=== PATIENT | male | born 1955 | race Caucasian/White ===

== ENCOUNTER 2019-02-08 10:16 | Day surgery (SDC) | payer OTHER ==
[2012-08-07 00:08] VITALS: BP 142/102
[2019-02-08] MEDS ORDERED: DIPRIVAN 200 MG/20 ML IV ONE (10:17)
[2019-02-08] MEDS ORDERED: Xylocaine-Mpf 2% 5 Ml Vial IJ ONE (10:17)
[2019-02-08] MEDS ORDERED: Ketamine HCl 50 MG/ML IJ ONE (10:17)
[2019-02-08] MEDS ORDERED: Depo-Medrol 40 MG/ML IM ONE (10:17)
[2019-02-08] MEDS ORDERED: LIDOCAINE HCL 2% 100 MG/5 ML IJ ONE (10:17)
[2019-02-08] MEDS ORDERED: LOPRESSOR 5 MG/5 ML INJECTION IV ONE (10:17)
[2019-02-08] MEDS ORDERED: Lactated Ringers 1,000 ML IV ONE (14:24)
--- NOTE | 2019-02-08 16:12 | XRAY ---
Indication: Bilateral L4-S1 MBB. Intraoperative fluoroscopy was provided for 8 seconds. Single digital spot image submitted for interpretation demonstrates posterior needle tips in the expected region of the left and right L4-S1 nerve roots. Correlate with intraoperative findings/report.
--- NOTE | 2019-02-08 16:15 | XRAY ---
8 seconds of fluoroscopy was used in surgery for bilateral L4-L5 and L5-S1 MBB.
== END 2019-02-08 12:35 | disposition home or self-care (01) ==
LOC: SDC-PAIN 10:16
PROVIDERS: ATTEND Psychiatry & Neurology Pain Medicine
DX: M54.5 Low back pain (principal); M47.816 Spondylosis without myelopathy or radiculopathy, lumbar region; I10 Essential (primary) hypertension; E78.5 Hyperlipidemia, unspecified; M19.90 Unspecified osteoarthritis, unspecified site; Z79.899 Other long term (current) drug therapy
CPT/HCPCS: 64493; 64494; 72020; 77002; J1030; J2704

== ENCOUNTER 2024-05-11 13:05 | Inpatient (IN) | payer OTHER ==
[2024-05-11] MEDS ORDERED: DUONEB 0.5-3 MG/3 ml Neb IH PRN (15:07)
--- NOTE | 2024-05-11 15:32 | PCM.HP ---
History of Present Illness - Chief Complaint Chief Complaint: Renal Cancer Date: 05/11/24 History of Present Illness: is a 68 year old male with PMHX HTN, bronchitis, bipolar, of renal cancer with mets. He is a hospice pt with [facility] and pain was not being controlled at home with oral meds. He was a direct admit today for pain control. Pt reports all over pain and moaning. Will start with IV meds as he is very SOB and unable to tolerate PO meds at this time. Hospice provided written orders and approved by Dr. Hudson to continue. Pt is a DNR. There is no family with pt at this time. - Review of Systems Constitutional: Weakness, No Fever, No Chills Eyes: No Symptoms Ears, Nose, & Throat: No Symptoms Respiratory: Cough, Short Of Breath Cardiac: No Chest Pain, No Edema, No Syncope Abdominal/Gastrointestinal: No Abdominal Pain, No Nausea, No Vomiting, No Diarrhea Genitourinary Symptoms: Incontinence, Urinary Retention, No Dysuria Musculoskeletal: No Back Pain, No Neck Pain Skin: No Rash Neurological: No Dizziness, No Focal Weakness, No Sensory Changes Psychological: No Symptoms Endocrine: No Symptoms Hematologic/Lymphatic: No Symptoms Immunological/Allergic: No Symptoms Medications & Allergies Home Medications: Home Medication List No Reportable Medications [No Reported Medications] 05/11/24 [History Confirmed 05/11/24] Allergies/Adverse Reactions: Allergies Allergy/AdvReac Type Severity Reaction Status Date / Time Penicillins Allergy Mild Unverified 05/11/24 15:22 Sulfa (Sulfonamide Allergy Mild Unverified 05/11/24 15:22 Antibiotics) [Sulfa(Sulfonamide Antibiotics)] - Past Medical History Past Medical History: Yes Neurological History: No Pertinent History ENT History: No Pertinent History Cardiac History: Hypertension Respiratory History: No Pertinent History, Bronchitis Endocrine Medical History: No Pertinent History Musculoskelatal History: Other GI Medical History: Hernia History: No Pertinent History Pyscho-Social History: No Pertinent History, Bipolar Male Reproductive Disorders: No Pertinent History Comment: HX RECALLED FROM PREVIOUS VISIT - Past Surgical History Past Surgical History: Yes Neuro Surgical History: No Pertinent History Cardiac History: No Pertinent History Respiratory Surgery: No Pertinent History GI Surgical History: No Pertinent History Genitourinary Surgical Hx: No Pertinent History Musculskeletal Surgical Hx: No Pertinent History Male Surgical History: No Pertinent History Other Surgical History: HX RECALLED FROM PREVIOUS VISIT - Social History Smoking Status: Unknown if ever smoked How long have you smoked: 30 YRS Exposure to second hand smoke: No Alcohol: Daily Drug Use: none - Social Determinants of Health Will the patient participate in the screening: Unable to obtain - Physical Exam Vital Signs: Vital Signs - 24 hr Temp Pulse Resp BP Pulse Ox 05/11/24 14:51 98.4 F 69 14 178/78 90 L General Appearance: moderate distress, alert Neurologic Exam: alert, cooperative, motor weakness, slurred speech, No motor deficits Eye Exam: PERRL/EOMI, eyes nml inspection Ears, Nose, Throat Exam: normal ENT inspection, TMs normal, pharynx normal, moist mucous membranes Neck Exam: normal inspection, non-tender, supple, full range of motion Respiratory Exam: diminished breath sounds, crackles/rales, No respiratory distress Cardiovascular Exam: regular rate/rhythm, normal heart sounds, normal peripheral pulses Gastrointestinal/Abdomen Exam: soft, normal bowel sounds, No tenderness, No mass Back Exam: normal inspection, normal range of motion, No CVA tenderness, No vertebral tenderness Extremity Exam: normal inspection, normal range of motion, pelvis stable Skin Exam: normal color, warm, dry, No rash Lymphatic Exam: No adenopathy Assessment/Plan (1) Hospice care patient Current Visit: Yes Status: Acute Assessment & Plan: - admitted from home for uncontrolled pain with [facility] - Orders wrote out by [facility] approved and continued. - Pain, anxiety meds IV PRN - Oropeza for incontinence Hospice care Code(s): Z51.5 - ENCOUNTER FOR PALLIATIVE CARE (2) Kidney cancer, primary, with metastasis from kidney to other site Current Visit: Yes Status: Chronic Assessment & Plan: - Hospice care Code(s): C64.9 - MALIGNANT NEOPLASM OF UNSP KIDNEY, EXCEPT RENAL PELVIS (3) Uncontrolled pain Current Visit: Yes Status: Acute Assessment & Plan: - oral meds changed to IV for continued comfort. Code(s): R52 - PAIN, UNSPECIFIED (4) Oxygen dependent Current Visit: Yes Status: Acute Assessment & Plan: - 5lNC 90% Code(s): Z99.81 - DEPENDENCE ON SUPPLEMENTAL OXYGEN
[2024-05-11] MEDS ORDERED: FEVERALL 650 MG RC PRN (15:33)
[2024-05-11] MEDS ORDERED: Dulcolax 10 MG SUPP PR PRN (15:34)
[2024-05-11] MEDS: MORPHINE SULFATE 2 MG INJ IV PRN (16:13)
[2024-05-11] MEDS: Ativan 2 MG/1 ML VIAL IV PRN (16:27)
[2024-05-12] MEDS: ANASPAZ 0.125 MG PO PRN (09:04)
[2024-05-12] MEDS: MORPHINE SULFATE 2 MG INJ IV PRN (10:04)
[2024-05-12] MEDS: Ativan 2 MG/1 ML VIAL IV PRN (10:22)
--- NOTE | 2024-05-12 12:26 | PCM.NOTE ---
Date and Time: 05/12/24 1219 Subjective Assessment: 05/11/24 is a 68 year old male with PMHX HTN, bronchitis, bipolar, of renal cancer with mets. He is a hospice pt with [facility] and pain was not being controlled at home with oral meds. He was a direct admit today for pain control. Pt reports all over pain and moaning. Will start with IV meds as he is very SOB and unable to tolerate PO meds at this time. Hospice provided written orders and approved by Dr. Hudson to continue. Pt is a DNR. There is no family with pt at this time. 05/12/24 Pt resting in bed. He has continued pain and increased secretions. This is being managed by Hospice. IOPO called by warehouse assistant. No family today with pt. Continue IV meds PRN. No further concerns at this time. - Review of Systems Constitutional: Fatigue (generalized pain), Weakness, No Fever, No Chills Eyes: No Symptoms Ears, Nose, & Throat: No Symptoms Respiratory: Short Of Breath, No Cough Cardiac: No Chest Pain, No Edema, No Syncope Abdominal/Gastrointestinal: No Abdominal Pain, No Nausea, No Vomiting, No Diarrhea Genitourinary Symptoms: No Dysuria Musculoskeletal: No Back Pain, No Neck Pain Skin: No Rash Neurological: No Dizziness, No Focal Weakness, No Sensory Changes Psychological: No Symptoms Endocrine: No Symptoms Hematologic/Lymphatic: No Symptoms Immunological/Allergic: No Symptoms Objective Exam General Appearance: mild distress, alert, thin Neurologic Exam: alert, cooperative, slurred speech, No motor deficits Skin Exam: normal color, warm, dry Eye Exam: PERRL, EOMI, eyes nml inspection Ears, Nose, Throat Exam: normal ENT inspection, pharynx normal, moist mucous membranes Neck Exam: normal inspection, non-tender, supple, full range of motion Respiratory Exam: diminished breath sounds, rhonchi, No respiratory distress Cardiovascular Exam: regular rate/rhythm, normal heart sounds Gastrointestinal/Abdomen Exam: soft, No tenderness, No mass Extremity Exam: normal inspection Back Exam: normal inspection, normal range of motion, No CVA tenderness, No vertebral tenderness Male Genitalia Exam: deferred Rectal Exam: deferred Objective Data Vital Signs: Vital Signs - 24 hr Temp Pulse Resp BP Pulse Ox 05/12/24 09:03 66 28 H 05/12/24 08:11 66 16 91 L 05/12/24 07:36 99.0 F 77 21 137/65 90 L 05/12/24 04:00 97.7 F 70 20 109/59 92 L 05/12/24 00:09 72 23 05/12/24 00:00 98.2 F 23 165/79 92 L 05/11/24 20:55 76 22 05/11/24 20:00 97.7 F 82 28 H 187/97 91 L 05/11/24 19:15 75 24 92 L 05/11/24 18:57 92 L 05/11/24 17:35 88 L 05/11/24 14:51 98.4 F 69 14 178/78 90 L Pain Assessment - Last Documented Pain Intensity 5 Pain Scale Used 0-10 Pain Scale Intake and Output: Intake & Output 05/10/24 05/11/24 05/12/24 05/13/24 11:59 11:59 11:59 11:59 Intake Total 0 Output Total 1550 Balance -1550 Weight 67.6 kg Multi-Disciplinary Progress Notes: Multi-Disciplinary Progress Notes 05/12/24 09:12 Case Management Note by Zofia Solis PATIENT HERE UNDER [facility] CARE WITH [facility]. Mika JARA ( [facility]) REPORTED THEIR AUDIENCE DEVELOPMENT MANAGER IS FOLLOWING PATIENT Initialized on 05/12/24 09:12 - END OF NOTE Assessment/Plan (1) Hospice care patient Current Visit: Yes Status: Acute Code(s): Z51.5 - ENCOUNTER FOR PALLIATIVE CARE (2) Kidney cancer, primary, with metastasis from kidney to other site Current Visit: Yes Status: Chronic Code(s): C64.9 - MALIGNANT NEOPLASM OF UNSP KIDNEY, EXCEPT RENAL PELVIS (3) Uncontrolled pain Current Visit: Yes Status: Acute Code(s): R52 - PAIN, UNSPECIFIED (4) Oxygen dependent Current Visit: Yes Status: Acute Assessment & Plan: 1) Hospice care patient Current Visit: Yes Status: Acute Assessment & Plan: - admitted from home for uncontrolled pain with [facility] - Orders wrote out by [facility] approved and continued. - Pain, anxiety meds IV PRN - Oropeza for incontinence Hospice care 05/12 - continued pain, anxiety, increased secretions- managed by hospice. - IOPO called by warehouse assistant Code(s): Z51.5 - ENCOUNTER FOR PALLIATIVE CARE (2) Kidney cancer, primary, with metastasis from kidney to other site Current Visit: Yes Status: Chronic Assessment & Plan: - Hospice care Code(s): C64.9 - MALIGNANT NEOPLASM OF UNSP KIDNEY, EXCEPT RENAL PELVIS (3) Uncontrolled pain Current Visit: Yes Status: Acute Assessment & Plan: - oral meds changed to IV for continued comfort. Code(s): R52 - PAIN, UNSPECIFIED (4) Oxygen dependent Current Visit: Yes Status: Acute Assessment & Plan: - 5lNC 90% Code(s): Z99.81 - DEPENDENCE ON SUPPLEMENTAL OXYGEN Code(s): Z99.81 - DEPENDENCE ON SUPPLEMENTAL OXYGEN
--- NOTE | 2024-05-13 11:43 | PCM.NOTE ---
Date and Time: 05/13/24 1136 Subjective Assessment: 05/11/24 is a 68 year old male with PMHX HTN, bronchitis, bipolar, of renal cancer with mets. He is a hospice pt with [facility] and pain was not being controlled at home with oral meds. He was a direct admit today for pain control. Pt reports all over pain and moaning. Will start with IV meds as he is very SOB and unable to tolerate PO meds at this time. Hospice provided written orders and approved by Dr. Hudson to continue. Pt is a DNR. There is no family with pt at this time. 05/12/24 Pt resting in bed. He has continued pain and increased secretions. This is being managed by Hospice. IOPO called by greenhouse manager. No family today with pt. Continue IV meds PRN. No further concerns at this time. 05/13/24 Pt resting in bed. When asking pt about pain he asked that we all just leave him alone. Continued pain and anxiety IV medications being provided for end of life care. Hospice in room today. Will continue same plan of care. No new concerns. - Review of Systems Constitutional: Fatigue, Weakness, No Fever, No Chills Eyes: No Symptoms Ears, Nose, & Throat: No Symptoms Respiratory: Short Of Breath, No Cough Cardiac: No Chest Pain, No Edema, No Syncope Abdominal/Gastrointestinal: No Abdominal Pain, No Nausea, No Vomiting, No Diarrhea Genitourinary Symptoms: No Dysuria Musculoskeletal: No Back Pain, No Neck Pain Skin: No Rash Neurological: No Dizziness, No Focal Weakness, No Sensory Changes Psychological: No Symptoms, Other (irritable) Endocrine: No Symptoms Hematologic/Lymphatic: No Symptoms Immunological/Allergic: No Symptoms Objective Exam General Appearance: no apparent distress, alert, cachetic Neurologic Exam: alert, agitation, No motor deficits Skin Exam: normal color, warm, dry Eye Exam: PERRL, EOMI, eyes nml inspection Ears, Nose, Throat Exam: normal ENT inspection, pharynx normal, moist mucous membranes Neck Exam: normal inspection, non-tender, supple, full range of motion Respiratory Exam: normal breath sounds, lungs clear, No respiratory distress Cardiovascular Exam: regular rate/rhythm, normal heart sounds Gastrointestinal/Abdomen Exam: soft, No tenderness, No mass Extremity Exam: normal inspection, normal range of motion Back Exam: normal inspection, normal range of motion, No CVA tenderness, No vertebral tenderness Male Genitalia Exam: deferred Rectal Exam: deferred Objective Data Vital Signs: Vital Signs - 24 hr Temp Pulse Resp BP Pulse Ox 05/13/24 11:22 96.6 F 70 25 H 117/51 99 05/13/24 10:39 96 05/13/24 09:40 99 05/13/24 09:32 70 20 05/13/24 07:30 98 05/13/24 06:53 96.5 F 73 30 H 96/56 99 05/13/24 04:00 96.9 F 16 99 05/13/24 00:00 99.6 F 69 19 119/59 101 H 05/12/24 20:00 99.1 F 89 19 119/59 99 05/12/24 19:00 71 20 05/12/24 18:50 74 26 H 99 05/12/24 16:00 98.0 F 71 20 115/54 89 L 05/12/24 14:27 121 H 20 05/12/24 12:00 97.7 F 75 24 125/60 81 L Pain Assessment - Last Documented Pain Intensity 5 Pain Scale Used FLACC Intake and Output: Intake & Output 05/10/24 05/11/24 05/12/24 05/13/24 11:59 11:59 11:59 11:59 Intake Total 0 0 Output Total 1550 825 Balance -1550 -825 Weight 67.6 kg 67.6 kg Assessment/Plan (1) Hospice care patient Current Visit: Yes Status: Acute Code(s): Z51.5 - ENCOUNTER FOR PALLIATIVE CARE (2) Kidney cancer, primary, with metastasis from kidney to other site Current Visit: Yes Status: Chronic Code(s): C64.9 - MALIGNANT NEOPLASM OF UNSP KIDNEY, EXCEPT RENAL PELVIS (3) Uncontrolled pain Current Visit: Yes Status: Acute Code(s): R52 - PAIN, UNSPECIFIED (4) Oxygen dependent Current Visit: Yes Status: Acute Assessment & Plan: 1) Hospice care patient Current Visit: Yes Status: Acute Assessment & Plan: - admitted from home for uncontrolled pain with [facility] - Orders wrote out by [facility] approved and continued. - Pain, anxiety meds IV PRN - Oropeza for incontinence Hospice care 05/12 - continued pain, anxiety, increased secretions- managed by hospice. - [facility] called by greenhouse manager 05/13 - Pt resting in bed, asked to be left alone - Continued hospice care - IV pain and anxiety meds Code(s): Z51.5 - ENCOUNTER FOR PALLIATIVE CARE (2) Kidney cancer, primary, with metastasis from kidney to other site Current Visit: Yes Status: Chronic Assessment & Plan: - Hospice care Code(s): C64.9 - MALIGNANT NEOPLASM OF UNSP KIDNEY, EXCEPT RENAL PELVIS (3) Uncontrolled pain Current Visit: Yes Status: Acute Assessment & Plan: - oral meds changed to IV for continued comfort. Code(s): R52 - PAIN, UNSPECIFIED (4) Oxygen dependent Current Visit: Yes Status: Acute Assessment & Plan: - 5lNC 90% 05/13 - 5L 98% Code(s): Z99.81 - DEPENDENCE ON SUPPLEMENTAL OXYGEN
--- NOTE | 2024-05-14 11:26 | PCM.NOTE ---
Date and Time: 05/14/24 1120 Subjective Assessment: 05/11/24 is a 68 year old male with PMHX HTN, bronchitis, bipolar, of renal cancer with mets. He is a hospice pt with [facility] and pain was not being controlled at home with oral meds. He was a direct admit today for pain control. Pt reports all over pain and moaning. Will start with IV meds as he is very SOB and unable to tolerate PO meds at this time. Hospice provided written orders and approved by Dr. Hudson to continue. Pt is a DNR. There is no family with pt at this time. 05/12/24 Pt resting in bed. He has continued pain and increased secretions. This is being managed by Hospice. IOPO called by warehouse assembly worker. No family today with pt. Continue IV meds PRN. No further concerns at this time. 05/13/24 Pt resting in bed. When asking pt about pain he asked that we all just leave him alone. Continued pain and anxiety IV medications being provided for end of life care. Hospice in room today. Will continue same plan of care. No new concerns. 05/14/24 Pt resting in bed. He is having little urine output. He was not given ativan last night and was restless this am until meds gave. Pain appears well controlled with meds. He is not responding to questions today. Family not in room with pt. He is on 2lNC at 91%. Will continue same plan of care. - Review of Systems Constitutional: No Fever, No Chills Eyes: No Symptoms Ears, Nose, & Throat: No Symptoms Respiratory: No Cough, No Short Of Breath Cardiac: No Chest Pain, No Edema, No Syncope Abdominal/Gastrointestinal: No Abdominal Pain, No Nausea, No Vomiting, No Diarrhea Genitourinary Symptoms: No Dysuria Musculoskeletal: No Back Pain, No Neck Pain Skin: No Rash Neurological: No Dizziness, No Focal Weakness, No Sensory Changes Psychological: No Symptoms Endocrine: No Symptoms Hematologic/Lymphatic: No Symptoms Immunological/Allergic: No Symptoms Additional Findings: pt not awake or alert- unable to respond to questions Objective Exam General Appearance: no apparent distress Skin Exam: mottled (legs) Ears, Nose, Throat Exam: dry mucous membranes Neck Exam: normal inspection Respiratory Exam: rhonchi Cardiovascular Exam: regular rate/rhythm Gastrointestinal/Abdomen Exam: soft Extremity Exam: normal inspection Male Genitalia Exam: deferred Rectal Exam: deferred Objective Data Vital Signs: Vital Signs - 24 hr Temp Pulse Resp BP BP Pulse Ox 05/14/24 08:30 74 20 05/14/24 07:39 98.0 F 71 14 110/54 91 L 05/14/24 06:39 97 05/14/24 04:00 97.0 F 79 15 118/55 05/13/24 23:55 97.8 F 98 H 16 99 05/13/24 20:20 73 16 98 05/13/24 20:00 97.2 F 76 17 112/57 99 05/13/24 18:38 76 18 112/57 05/13/24 16:12 74 104/59 05/13/24 16:00 96.5 F 72 24 104/52 99 05/13/24 11:22 96.6 F 70 25 H 117/51 99 Pain Assessment - Last Documented Pain Intensity 5 Pain Scale Used FLACC Intake and Output: Intake & Output 05/11/24 05/12/24 05/13/24 05/14/24 11:59 11:59 11:59 11:59 Intake Total 0 0 0 Output Total 1550 825 375 Balance -1550 -825 -375 Weight 67.6 kg 67.6 kg Assessment/Plan (1) Hospice care patient Current Visit: Yes Status: Acute Code(s): Z51.5 - ENCOUNTER FOR PALLIATIVE CARE (2) Kidney cancer, primary, with metastasis from kidney to other site Current Visit: Yes Status: Chronic Code(s): C64.9 - MALIGNANT NEOPLASM OF UNSP KIDNEY, EXCEPT RENAL PELVIS (3) Uncontrolled pain Current Visit: Yes Status: Acute Code(s): R52 - PAIN, UNSPECIFIED (4) Oxygen dependent Current Visit: Yes Status: Acute Assessment & Plan: 1) Hospice care patient Current Visit: Yes Status: Acute Assessment & Plan: - admitted from home for uncontrolled pain with [facility] - Orders wrote out by [facility] approved and continued. - Pain, anxiety meds IV PRN - Oropeza for incontinence Hospice care 05/12 - continued pain, anxiety, increased secretions- managed by hospice. - IOP[facility] called by warehouse assembly worker 05/13 - Pt resting in bed, asked to be left alone - Continued hospice care - IV pain and anxiety meds 05/14 - no Ativan gave last night and pt restless this am- advised to encouraged rn night nurses to provide meds for comfort as needed. Code(s): Z51.5 - ENCOUNTER FOR PALLIATIVE CARE (2) Kidney cancer, primary, with metastasis from kidney to other site Current Visit: Yes Status: Chronic Assessment & Plan: - Hospice care Code(s): C64.9 - MALIGNANT NEOPLASM OF UNSP KIDNEY, EXCEPT RENAL PELVIS (3) Uncontrolled pain Current Visit: Yes Status: Acute Assessment & Plan: - oral meds changed to IV for continued comfort. - pain controlled with meds Code(s): R52 - PAIN, UNSPECIFIED (4) Oxygen dependent Current Visit: Yes Status: Acute Assessment & Plan: - 5lNC 90% 05/13 - 5L 98% 05/14 - 91% 2lNC Code(s): Z99.81 - DEPENDENCE ON SUPPLEMENTAL OXYGEN Code(s): Z99.81 - DEPENDENCE ON SUPPLEMENTAL OXYGEN
--- NOTE | 2024-05-15 05:55 | PCM.NOTE ---
Date and Time: 05/15/24 0553 Subjective Assessment: is a 68 year old male with PMHX HTN, bronchitis, bipolar, of renal cancer with mets. He is a hospice pt with [facility] and pain was not being controlled at home with oral meds. He was a direct admit today for pain control. Pt reports all over pain and moaning. Will start with IV meds as he is very SOB and unable to tolerate PO meds at this time. Hospice provided written orders and approved by Dr. Hudson to continue. Pt is a DNR. 05/15/24: Patient resting comfortably. Family at bedside. All questions and concerns answered. Per family, patient appears to be comfortable. Plan to continue pain control. <DONELL BAZAN - Last Filed: 05/15/24 14:53> Date and Time: 05/15/242226 <LOU SANDERS - Last Filed: 05/15/24 22:29> - Review of Systems All Other Systems: Unable due to condition <DONELL BAZAN - Last Filed: 05/15/24 14:53> Objective Exam General Appearance: no apparent distress Skin Exam: pale Respiratory Exam: crackles/rales Cardiovascular Exam: regular rate/rhythm, normal heart sounds Gastrointestinal/Abdomen Exam: soft, normal bowel sounds Extremity Exam: normal inspection <DONELL BAZAN - Last Filed: 05/15/24 14:53> Objective Data Vital Signs: Vital Signs - 24 hr Temp Pulse Resp BP BP Pulse Ox 05/15/24 03:52 97.8 F 80 25 H 130/60 85 L 05/14/24 23:55 97.9 F 83 16 101/51 99 05/14/24 19:59 97.4 F 88 15 109/55 89 L 05/14/24 19:13 94 L 05/14/24 17:32 63 14 05/14/24 16:00 97.4 F 68 13 103/51 05/14/24 13:58 74 124/68 05/14/24 11:51 68 124/68 05/14/24 11:41 97.4 F 77 12 124/56 05/14/24 08:30 74 20 05/14/24 07:39 98.0 F 71 14 110/54 91 L 05/14/24 06:39 97 Pain Assessment - Last Documented Pain Intensity 5 Pain Scale Used FLACC Intake and Output: Intake & Output 05/12/24 05/13/24 05/14/24 05/15/24 11:59 11:59 11:59 11:59 Intake Total 0 0 0 0 Output Total 5940 825 375 450 Balance -1550 -825 -375 -450 Weight 67.6 kg 67.6 kg <DONELL BAZAN - Last Filed: 05/15/24 14:53> Vital Signs: Vital Signs - 24 hr Temp Pulse Resp BP BP Pulse Ox 05/15/24 19:49 98.0 F 85 16 95/51 87 L 05/15/24 18:43 96 05/15/24 18:26 79 05/15/24 16:00 98.1 F 92 H 17 110/57 110/57 99 05/15/24 12:00 97.6 F 71 14 84/48 99 05/15/24 11:26 70 18 05/15/24 07:09 99 05/15/24 07:03 97.2 F 77 14 105/51 99 05/15/24 03:52 97.8 F 80 25 H 130/60 85 L 05/14/24 23:55 97.9 F 83 16 101/51 99 Pain Assessment - Last Documented Pain Intensity 4 Pain Scale Used FLACC Intake and Output: Intake & Output 05/13/24 05/14/24 05/15/24 05/16/24 11:59 11:59 11:59 11:59 Intake Total 0 0 0 0 Output Total 825 375 450 250 Balance -825 -375 -450 -250 Weight 67.6 kg <LOU SANDERS - Last Filed: 05/15/24 22:29> Assessment/Plan (1) Hospice care patient Current Visit: Yes Status: Acute Assessment & Plan: - Under the care of [facility]/ admitted for pain control - Agree with orders provided by [facility]-will continue - Pain, anxiety meds IV PRN - Oropeza for incontinence Hospice care Code(s): Z51.5 - ENCOUNTER FOR PALLIATIVE CARE (2) Oxygen dependent Current Visit: Yes Status: Acute Assessment & Plan: -Noted, will continue comfort measures including oxygen support Code(s): Z99.81 - DEPENDENCE ON SUPPLEMENTAL OXYGEN (3) Uncontrolled pain Current Visit: Yes Status: Acute Assessment & Plan: - pain controlled with IV pain meds -continue to monitor and adjust as needed Code(s): R52 - PAIN, UNSPECIFIED (4) Kidney cancer, primary, with metastasis from kidney to other site Current Visit: Yes Status: Chronic Assessment & Plan: - Hospice care -Will continue comfort measures as outlined by [facility] Code(s): C64.9 - MALIGNANT NEOPLASM OF UNSP KIDNEY, EXCEPT RENAL PELVIS <DONELL BAZAN - Last Filed: 05/15/24 14:53> DONOVAN Encounter - DONOVAN Encounter Attestation DONOVAN Encounter Attestation: "IhavepersonalDASHA Collins andhavediscussed pertinent aspects of their care with Donell Rudd agree with the history, physical exam (any modifications based on my personal exam will be noted below), assessment, and plan as outlined in original note. Please see immediately below for my summary of findings and additional assessment and plan along with any meaningful corrections/explanations to the Subjective/Objective portions of the DONOVAN note will be noted." My portion of the encounter took place via telemedicine. -[facility] on comfort measures only. Spoke with family at the bedside. Patient did not appear to be struggling or in pain/distress <LOU SANDESR - Last Filed: 05/15/24 22:29>
[2024-05-15] MEDS ORDERED: MORPHINE SULFATE 2 MG INJ IV PRN (10:04)
[2024-05-15] MEDS: Ativan 2 MG/1 ML VIAL IV PRN (11:26)
[2024-05-15] MEDS: MORPHINE SULFATE 4 MG INJ IV PRN (11:28)
--- NOTE | 2024-05-16 05:31 | PCM.NOTE ---
Date and Time: 05/16/24529 Subjective Assessment: is a 68 year old male with PMHX HTN, bronchitis, bipolar, of renal cancer with mets. He is a hospice pt with [facility] and pain was not being controlled at home with oral meds. He was a direct admit today for pain control. Pt reports all over pain and moaning. Will start with IV meds as he is very SOB and unable to tolerate PO meds at this time. Hospice provided written orders and approved by Dr. Hudson to continue. Pt is a DNR. 05/15/24: Patient resting comfortably. Family at bedside. All questions and concerns answered. Per family, patient appears to be comfortable. Plan to continue pain control. 05/16/24: No overnight events noted. Patient continues to rest comfortably. No concerns per family. Continue current management. - Review of Systems All Other Systems: Unable due to condition Objective Exam General Appearance: no apparent distress Neurologic Exam: other (sedation) Skin Exam: pale Respiratory Exam: crackles/rales Cardiovascular Exam: regular rate/rhythm, normal heart sounds Gastrointestinal/Abdomen Exam: soft, normal bowel sounds Extremity Exam: normal inspection Back Exam: normal inspection Male Genitalia Exam: deferred Rectal Exam: deferred Objective Data Vital Signs: Vital Signs - 24 hr Temp Pulse Resp BP BP Pulse Ox 05/16/24 04:00 97.5 F 85 95/50 89 L 05/15/24 22:56 97.8 F 91 H 16 121/60 89 L 05/15/24 22:48 91 H 121/60 05/15/24 19:49 98.0 F 85 16 95/51 87 L 05/15/24 18:43 96 05/15/24 18:26 79 05/15/24 16:00 98.1 F 92 H 17 110/57 110/57 99 05/15/24 12:00 97.6 F 71 14 84/48 99 05/15/24 11:26 70 18 05/15/24 07:09 99 05/15/24 07:03 97.2 F 77 14 105/51 99 Pain Assessment - Last Documented Pain Intensity 2 Pain Scale [facility] Intake and Output: Intake & Output 05/13/24 05/14/24 05/15/24 05/16/24 11:59 11:59 11:59 11:59 Intake Total 0 0 0 0 Output Total 824 597 879 004 Balance -085 -375 -450 -833 Weight 67.6 kg Assessment/Plan (1) Hospice care patient Current Visit: Yes Status: Acute Assessment & Plan: - Under the care of [facility] Hospice/ admitted for pain control - Agree with orders provided by [facility]-will continue - Pain, anxiety meds IV PRN - Oropeza for incontinence Hospice care 05/16: -Pt appears comfortable - continue current pain management as outlined by [facility] Code(s): Z51.5 - ENCOUNTER FOR PALLIATIVE CARE (2) Oxygen dependent Current Visit: Yes Status: Acute Assessment & Plan: -Noted, will continue comfort measures including oxygen support 05/16: -oxygen desating to mid 80's, will continue oxygen support for comfort Code(s): Z99.81 - DEPENDENCE ON SUPPLEMENTAL OXYGEN (3) Uncontrolled pain Current Visit: Yes Status: Acute Assessment & Plan: - pain controlled with IV pain meds -continue to monitor and adjust as needed Code(s): R52 - PAIN, UNSPECIFIED (4) Kidney cancer, primary, with metastasis from kidney to other site Current Visit: Yes Status: Chronic Assessment & Plan: - Hospice care -Will continue comfort measures as outlined by [facility] Code(s): Z51.5 - ENCOUNTER FOR PALLIATIVE CARE (2) Oxygen dependent Current Visit: Yes Status: Acute Code(s): Z99.81 - DEPENDENCE ON SUPPLEMENTAL OXYGEN (3) Uncontrolled pain Current Visit: Yes Status: Acute Code(s): R52 - PAIN, UNSPECIFIED (4) Kidney cancer, primary, with metastasis from kidney to other site Current Visit: Yes Status: Chronic Code(s): C64.9 - MALIGNANT NEOPLASM OF UNSP KIDNEY, EXCEPT RENAL PELVIS
--- NOTE | 2024-05-17 05:48 | PCM.NOTE ---
Date and Time: 05/17/2456 Subjective Assessment: is a 68 year old male with PMHX HTN, bronchitis, bipolar, of renal cancer with mets. He is a hospice pt with [facility] and pain was not being controlled at home with oral meds. He was a direct admit today for pain control. Pt reports all over pain and moaning. Will start with IV meds as he is very SOB and unable to tolerate PO meds at this time. Hospice provided written orders and approved by Dr. Hudson to continue. Pt is a DNR. 05/15/24: Patient resting comfortably. Family at bedside. All questions and concerns answered. Per family, patient appears to be comfortable. Plan to continue pain control. 05/16/24: No overnight events noted. Patient continues to rest comfortably. No concerns per family. Continue current management. 05/17/24: Patient resting comfortably. Is responsive when being moved. Per RN, Hospice to try to wean off IV meds and start oral pain meds and possible discharge home. - Review of Systems All Other Systems: Unable due to condition Objective Exam General Appearance: no apparent distress, lethargy Skin Exam: pale Respiratory Exam: prolonged expirations, crackles/rales Cardiovascular Exam: regular rate/rhythm, normal heart sounds, murmur Gastrointestinal/Abdomen Exam: soft, normal bowel sounds Back Exam: normal inspection Male Genitalia Exam: deferred Rectal Exam: deferred Objective Data Vital Signs: Vital Signs - 24 hr Temp Pulse Resp BP BP Pulse Ox 05/17/24 04:00 97.7 F 79 17 119/60 99 05/17/24 00:00 98.1 F 80 17 101/55 93 L 05/16/24 21:17 89 20 112/61 05/16/24 20:00 98.1 F 89 20 112/61 93 L 05/16/24 19:17 91 L 05/16/24 15:33 97.4 F 76 12 94/55 05/16/24 11:26 97.6 F 70 12 93/55 84 L 05/16/24 07:49 97.6 F 86 12 91/53 87 L 05/16/24 07:24 87 L Pain Assessment - Last Documented Pain Intensity 2 Pain Scale Used 0-10 Pain Scale Intake and Output: Intake & Output 05/14/24 05/15/24 05/16/24/26/24 11:59 11:59 11:59 11:59 Intake Total 0 0 0 0 Output Total 375 450 500 350 Balance -375 -450 -500 -350 Multi-Disciplinary Progress Notes: Multi-Disciplinary Progress Notes 05/16/24 16:27 Nutrition Note by Kathleen Fletcher F/u Note: Soft diet con't. Pt con't to refuse meals. Here for pain control; on hospice. Will con't to offer meals/snacks to patient. Yoli MSRDCD Initialized on 05/16/24 16:27 - END OF NOTE Assessment/Plan (1) Hospice care patient Current Visit: Yes Status: Acute Assessment & Plan: - Under the care of [facility] Hospice/ admitted for pain control - Agree with orders provided by [facility]-will continue - Pain, anxiety meds IV PRN - Oropeza for incontinence Hospice care 05/16: -Pt appears comfortable - continue current pain management as outlined by [facility] 05/17: -Per RN - Hospice to try and wean off IV pain meds so patient can return home - pending eval Code(s): Z51.5 - ENCOUNTER FOR PALLIATIVE CARE (2) Oxygen dependent Current Visit: Yes Status: Acute Assessment & Plan: -Noted, will continue comfort measures including oxygen support 05/16: -oxygen desating to mid 80's, will continue oxygen support for comfort Code(s): Z99.81 - DEPENDENCE ON SUPPLEMENTAL OXYGEN (3) Uncontrolled pain Current Visit: Yes Status: Acute Assessment & Plan: - pain controlled with IV pain meds -continue to monitor and adjust as needed 05/17: -Pain meds per [facility] hospice Code(s): R52 - PAIN, UNSPECIFIED (4) Kidney cancer, primary, with metastasis from kidney to other site Current Visit: Yes Status: Chronic Assessment & Plan: - Hospice care -Will continue comfort measures as outlined by [facility] Code(s): Z51.5 - ENCOUNTER FOR PALLIATIVE CARE Code(s): Z51.5 - ENCOUNTER FOR PALLIATIVE CARE (2) Oxygen dependent Current Visit: Yes Status: Acute Code(s): Z99.81 - DEPENDENCE ON SUPPLEMENTAL OXYGEN (3) Uncontrolled pain Current Visit: Yes Status: Acute Code(s): R52 - PAIN, UNSPECIFIED (4) Kidney cancer, primary, with metastasis from kidney to other site Current Visit: Yes Status: Chronic Code(s): C64.9 - MALIGNANT NEOPLASM OF UNSP KIDNEY, EXCEPT RENAL PELVIS
--- NOTE | 2024-05-18 05:25 | PCM.NOTE ---
Date and Time: 05/18/24523 Subjective Assessment: is a 68 year old male with PMHX HTN, bronchitis, bipolar, of renal cancer with mets. He is a hospice pt with [facility] and pain was not being controlled at home with oral meds. He was a direct admit today for pain control. Pt reports all over pain and moaning. Will start with IV meds as he is very SOB and unable to tolerate PO meds at this time. Hospice provided written orders and approved by Dr. Hudson to continue. Pt is a DNR. 05/15/24: Patient resting comfortably. Family at bedside. All questions and concerns answered. Per family, patient appears to be comfortable. Plan to continue pain control. 05/16/24: No overnight events noted. Patient continues to rest comfortably. No concerns per family. Continue current management. 05/17/24: Patient resting comfortably. Is responsive when being moved. Per RN, Hospice to try to wean off IV meds and start oral pain meds and possible discharge home. 05/18/24: Vitals stable, last spo2 92% on 2L - No oral intake x 10 days. Appears comfortable. Bilateral feet mottled. Sleeping most of the day. Discussed case with [facility] field insurance sales manager, plan is to start buccal pain meds today and discharge home tomorrow. - Review of Systems All Other Systems: Unable due to condition Objective Exam General Appearance: no apparent distress Skin Exam: mottled, pale Eye Exam: PERRL Ears, Nose, Throat Exam: normal ENT inspection Neck Exam: normal inspection Respiratory Exam: crackles/rales, rhonchi Cardiovascular Exam: murmur Gastrointestinal/Abdomen Exam: soft, normal bowel sounds Extremity Exam: pedal edema Back Exam: normal inspection Male Genitalia Exam: deferred Rectal Exam: deferred Objective Data Vital Signs: Vital Signs - 24 hr Temp Pulse Resp BP Pulse Ox 05/18/24 04:00 97.9 F 66 20 120/58 99 05/18/24 01:35 99 05/18/24 00:00 98.2 F 99 H 20 135/62 99 05/17/24 23:41 77 16 05/17/24 20:00 97.8 F 77 16 101/54 99 05/17/24 15:46 97.9 F 79 27 H 104/40 87 L 05/17/24 11:44 97.5 F 78 12 117/55 84 L 05/17/24 08:33 85 L 05/17/24 06:54 97.4 F 80 12 112/59 84 L Pain Assessment - Last Documented Pain Intensity 2 Pain Scale Used 0-10 Pain Scale Intake and Output: Intake & Output 05/15/24 05/16/24 05/17/24 05/18/24 11:59 11:59 11:59 11:59 Intake Total 0 0 0 0 Output Total 450 500 350 600 Balance -450 -500 -350 -600 Multi-Disciplinary Progress Notes: Multi-Disciplinary Progress Notes 05/17/24 10:24 Case Management Note by Letty Arteaga PATIENT REMAINS UNDER [facility] GIP Initialized on 05/17/24 10:24 - END OF NOTE Assessment/Plan (1) Hospice care patient Current Visit: Yes Status: Acute Assessment & Plan: - Under the care of [facility]/ admitted for pain control - Agree with orders provided by [facility]-will continue - Pain, anxiety meds IV PRN - Oropeza for incontinence Hospice care 05/16: -Pt appears comfortable - continue current pain management as outlined by [facility] 05/17: -Per RN - Hospice to try and wean off IV pain meds so patient can return home - pending eval 05/18: -Buccal pain meds to start today, possible d/c tomorrow Code(s): Z51.5 - ENCOUNTER FOR PALLIATIVE CARE (2) Oxygen dependent Current Visit: Yes Status: Acute Assessment & Plan: -Noted, will continue comfort measures including oxygen support 05/16: -oxygen desating to mid 80's, will continue oxygen support for comfort Code(s): Z99.81 - DEPENDENCE ON SUPPLEMENTAL OXYGEN (3) Uncontrolled pain Current Visit: Yes Status: Acute Assessment & Plan: - pain controlled with IV pain meds -continue to monitor and adjust as needed 05/17: -Pain meds per [facility] Code(s): R52 - PAIN, UNSPECIFIED (4) Kidney cancer, primary, with metastasis from kidney to other site Current Visit: Yes Status: Chronic Assessment & Plan: - Hospice care -Will continue comfort measures as outlined by [facility] Code(s): Z51.5 - ENCOUNTER FOR PALLIATIVE CARE (2) Oxygen dependent Current Visit: Yes Status: Acute Code(s): Z99.81 - DEPENDENCE ON SUPPLEMENTAL OXYGEN (3) Uncontrolled pain Current Visit: Yes Status: Acute Code(s): R52 - PAIN, UNSPECIFIED (4) Kidney cancer, primary, with metastasis from kidney to other site Current Visit: Yes Status: Chronic Code(s): C64.9 - MALIGNANT NEOPLASM OF UNSP KIDNEY, EXCEPT RENAL PELVIS
[2024-05-18] MEDS: PATIENT OWN MEDICATION SL PRN ×2 (10:10→11:37)
[2024-05-19 06:47] VITALS: BP 98/49; PULSE 76; RESP 24; TEMP 96.9; O2SAT 90
--- NOTE | 2024-05-19 08:12 | PCM.DS ---
Discharge Summary Date of Admission: 05/11/24 14:33 Date of Discharge: 05/19/24 Admitting Physician: BLAIR HUDSON MD Primary Care Provider: PETER ROGERS Allergies Allergies Penicillins Allergy (Mild, Verified 05/11/24 15:59) Sulfa (Sulfonamide Antibiotics) [Sulfa(Sulfonamide Antibiotics)] Allergy (Mild, Verified 05/11/24 15:59) Hospital Summary - Hospital Course Hospital Course: is a 68 year old male with PMHX HTN, bronchitis, bipolar, of renal cancer with mets. He is a hospice pt with [facility] and pain was not being controlled at home with oral meds. He was a direct admit today for pain control. While IP patient received IV pain meds under the direction of hospice. Patient has been comfortable during hospitalization and converted to buccal pain meds 05/18/24. Hospice provided written orders and approved by Dr. Hudson to continue. Pt is a DNR. Plan for discharge home today under Hospice care. Discharge Note Latest Assessment & Plan (1) Hospice care patient Current Visit: Yes Status: Acute Assessment & Plan: - Under the care of [facility] Hospice/ admitted for pain control - Agree with orders provided by [facility]-will continue - Pain, anxiety meds IV PRN - Oropeza for incontinence Hospice care 05/16: -Pt appears comfortable - continue current pain management as outlined by [facility] 05/17: -Per RN - Hospice to try and wean off IV pain meds so patient can return home - pending eval 05/18: -Buccal pain meds to start today, possible d/c tomorrow Code(s): Z51.5 - ENCOUNTER FOR PALLIATIVE CARE (2) Oxygen dependent Current Visit: Yes Status: Acute Assessment & Plan: -Noted, will continue comfort measures including oxygen support 05/16: -oxygen desating to mid 80's, will continue oxygen support for comfort Code(s): Z99.81 - DEPENDENCE ON SUPPLEMENTAL OXYGEN (3) Uncontrolled pain Current Visit: Yes Status: Acute Assessment & Plan: - pain controlled with IV pain meds -continue to monitor and adjust as needed 05/17: -Pain meds per [facility] hospice I spent 35 minutes [id number] with the patient on the day of discharge performing discharge exam, discussing hospital stay and discharge instructions with patient and caregivers, preparation of discharge records, prescriptions & referral forms and addressing any questions/concerns the patient had as documented above. - Vitals & Intake/Output Vital Signs: Vital Signs Temperature 96.9 F 05/19/24 06:47 Pulse Rate 76 05/19/24 06:47 Respiratory Rate 05/19/24 06:47 Blood Pressure 98/49 05/19/24 06:47 O2 Sat by Pulse Oximetry 90 L 05/19/24 06:47 Intake & Output: Intake & Output 05/16/24 05/17/24 05/18/24 05/19/24 11:59 11:59 11:59 11:59 Intake Total 0 0 0 0 Output Total 500 350 600 675 Balance -500 -350 -600 -675 Weight 61.1 kg 60.4 kg - Procedures and Test Procedures and Tests throughout Hospitalization: Therapy Orders & Screens 05/11/24 16:05 Oxygen Nasal Cannula 5 lpm Comment: Diagnosis: Renal Cancer 05/11/24 19:15 Respiratory Therapy Assessment DAILY Comment: Diagnosis: Renal Cancer Discharge Exam General Appearance: mild distress, lethargy, cachetic Neurologic Exam: slurred speech Neck Exam: normal inspection Respiratory Exam: diminished breath sounds, crackles/rales, rhonchi Cardiovascular Exam: regular rate/rhythm, murmur Male Genitalia Exam: deferred Rectal Exam: deferred Extremity Exam: other (mottling BLE) Skin Exam: mottled Final Diagnosis/Problem List - Final Discharge Diagnosis/Problem (1) Hospice care patient Current Visit: Yes Status: Acute Code(s): Z51.5 - ENCOUNTER FOR PALLIATIVE CARE (2) Oxygen dependent Current Visit: Yes Status: Acute Code(s): Z99.81 - DEPENDENCE ON SUPPLEMENTAL OXYGEN (3) Uncontrolled pain Current Visit: Yes Status: Acute Code(s): R52 - PAIN, UNSPECIFIED (4) Kidney cancer, primary, with metastasis from kidney to other site Current Visit: Yes Status: Chronic Code(s): C64.9 - MALIGNANT NEOPLASM OF UNSP KIDNEY, EXCEPT RENAL PELVIS - Discharge Disposition: Hospice @ [facility] Condition: Stable Prescriptions: No Action No Reportable Medications [No Reported Medications] Follow up with: PETER ROGERS NP [Primary Care Provider] -
== END 2024-05-19 10:13 | disposition hospice, home (50) | DRG 951 ==
LOC: MED SURG 14:33
PROVIDERS: ADMIT Internal Medicine; ATTEND Internal Medicine
DX: Z51.5 Encounter for palliative care (principal); C64.9 Malignant neoplasm of unspecified kidney, except renal pelvis; Z99.81 Dependence on supplemental oxygen; R52 Pain, unspecified; I10 Essential (primary) hypertension
CPT/HCPCS: 94760; J2060; J2270; Q3014; A9270-GY